=== PATIENT | male | born 1975 | race Caucasian/White ===

== ENCOUNTER 2016-09-07 15:23 | Emergency (ER) | payer OTHER ==
[2016-09-07 15:42] VITALS: BP 134/93
--- NOTE | 2016-09-07 15:59 | EDM.PDOC ---
ED HPI GENERAL MEDICAL PROBLEM - General Chief Complaint: ENT Problem Stated Complaint: TOOTH PAIN Time Seen by Provider: 09/07/16 15:39 Source of Information: Reports: Patient History Limitations: Reports: No Limitations - History of Present Illness INITIAL COMMENTS - FREE TEXT/NARRATIVE: The patient presents with left lower jaw dental pain and edema. This started a couple days ago. He denies fever or chills. He has history of dental abscess. Onset: Gradual Duration: Day(s): Location: Reports: Face (Left lower jaw pain) Quality: Reports: Sharp Severity: Severe Improves with: Reports: None Worsens with: Reports: None Associated Symptoms: Reports: No Other Symptoms Left Lower Tooth/Teeth Pain Score (Numeric/FACES): 10 - Related Data Allergies Allergy/AdvReac Type Severity Reaction Status Date / Time No Known Allergies Allergy Verified 08/11/15 18:11 Home Meds: Home Meds Penicillin V Potassium 500 mg PO Q6HR #40 tab 09/07/16 [Rx] oxyCODONE HCl/Acetaminophen [Percocet 5-325 mg Tablet] 1 - 2 each PO Q6HR PRN # 20 tablet 09/07/16 [Rx] Past Medical History - Past Health History Medical/Surgical History: Denies Medical/Surgical History Neurological History: Reports: Migraines - Past Surgical History GI Surgical History: Reports: Appendectomy Social & Family History - Tobacco Use Smoking Status *Q: Current Every Day Smoker Years of Tobacco use: 20 Packs/Tins Daily: 0.5 - Recreational Drug Use Recreational Drug Use: No ED ROS ENT - Review of Systems Review Of Systems: See Below Constitutional: Reports: No Symptoms HEENT: Reports: Dental Pain Respiratory: Reports: No Symptoms Cardiovascular: Reports: No Symptoms Endocrine: Reports: No Symptoms GI/Abdominal: Reports: No Symptoms : Reports: No Symptoms Musculoskeletal: Reports: No Symptoms ED EXAM, ENT - Physical Exam Exam: See Below Exam Limited By: No Limitations General Appearance: Alert, No Apparent Distress Ears: Normal External Exam Nose: Normal Inspection Mouth/Throat: Other (Left lower jaw pain and edema with pain upon palpation) Neck: Lymphadenopathy (L) Course - Vital Signs Last Recorded V/S: Last Vital Signs Temp 98.1 F 09/07/16 15:37 Pulse 95 09/07/16 15:37 Resp 18 09/07/16 15:37 BP 134/93 H 09/07/16 15:37 Pulse Ox 100 09/07/16 15:37 Departure - Departure Time of Disposition: 16:00 Disposition: Home, Self-Care 01 Condition: Good Clinical Impression: Dental abscess, Pain, dental - Discharge Information Prescriptions: Penicillin V Potassium 500 mg PO Q6HR #40 tab oxyCODONE HCl/Acetaminophen [Percocet 5-325 mg Tablet] 1 - 2 each PO Q6HR PRN # 20 tablet PRN Reason: Pain Referrals: Rose Dempsey PA-C [Primary Care Provider] - Forms: ED Department Discharge Additional Instructions: Take the medication as prescribed. Put a warm compress on your jaw 2 times per day for 3 days. Follow up with a dentist in [facility].
== END 2016-09-07 16:09 | disposition home or self-care (01) ==
LOC: JD.ED 15:23
DX: K04.7 Periapical abscess without sinus (principal); F17.210 Nicotine dependence, cigarettes, uncomplicated; Z90.49 Acquired absence of other specified parts of digestive tract
CPT/HCPCS: 99282; 99283

== ENCOUNTER 2017-05-12 21:20 | Emergency (ER) | payer OTHER ==
[2017-05-12 21:26] VITALS: BP 170/107
[2017-05-12] MEDS ORDERED: Penicillin V Potassium 500 MG Tab PO ONE (21:48)
[2017-05-12] MEDS ORDERED: Naproxen 500 MG Tab PO ONE (21:48)
--- NOTE | 2017-05-12 21:54 | EDM.PDOC ---
ED HPI GENERAL MEDICAL PROBLEM - General Chief Complaint: ENT Problem Stated Complaint: tooth pain Time Seen by Provider: 05/12/17 21:27 Source of Information: Reports: Patient, Family () History Limitations: Reports: No Limitations - History of Present Illness INITIAL COMMENTS - FREE TEXT/NARRATIVE: The patient states that he developed a left upper toothache around noon today. He has been applying a topical anesthetic with some relief. No dental injury or fracture. No prior issues with this particular tooth. No recent fever. No recent oral drainage. The patient acknowledges that he has "bad teeth" and that he has not been to a dentist in about 7 years. The patient smells of alcohol and acknowledges that he was drinking earlier tonight, in order to "kill the pain". The patient's PCP is Rose Dempsey. 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, NSAIDS Left Tooth/Teeth Pain Score (Numeric/FACES): 10 - Related Data Allergies Allergy/AdvReac Type Severity Reaction Status Date / Time No Known Allergies Allergy Verified 08/11/15 18:11 Home Meds: Home Meds Penicillin V Potassium 500 mg PO Q6HR #40 tab 09/07/16 [Rx] oxyCODONE HCl/Acetaminophen [Percocet 5-325 mg Tablet] 1 - 2 each PO Q6HR PRN # 20 tablet 09/07/16 [Rx] Naproxen 500 mg PO Q12H PRN #20 tablet 05/12/17 [Rx] Penicillin V Potassium [IJD: Penicillin V Potassium] 500 mg PO Q6H #40 tab 05/12 [Rx] Past Medical History Musculoskeletal History: Reports: Back Pain, Chronic (DDD) Neurological History: Reports: Headaches, Chronic (patient calls them "migraines ", but they're not) Endocrine/Metabolic History: Reports: Obesity/BMI 30+ - Past Surgical History HEENT Surgical History: Reports: Naso-Sinus Surgery (Rhinoplasty), Oral Surgery ([place] teeth extraction) GI Surgical History: Reports: Appendectomy Social & Family History - Tobacco Use Smoking Status *Q: Current Every Day Smoker Years of Tobacco use: 22 Packs/Tins Daily: 1 - Caffeine Use Caffeine Use: Reports: Soda - Alcohol Use Alcohol Use History: Yes Alcohol Use Frequency: Binges - Recreational Drug Use Recreational Drug Use: No - Living Situation & Occupation Living situation: Reports: , with Spouse Occupation: Unemployed ED ROS ENT - Review of Systems Review Of Systems: ROS reveals no pertinent complaints other than HPI. ED EXAM, ENT - Physical Exam Exam: See Below Exam Limited By: No Limitations General Appearance: Alert, WD/WN, Mild Distress (Crying, initially, although stopped when asked questions) Eye Exam: Bilateral Eye: Normal Inspection Ears: Normal External Exam, Normal Canal, Hearing Grossly Normal, Normal TMs Nose: Normal Inspection, Normal Mucousa, No Blood Mouth/Throat: Normal Inspection, Normal Lips, Normal Oropharynx, Other ( Extensive gingivitis throughout. Teeth #1, 2 absent. Teeth #3, 4 with fillings. Tooth #8 loose. Tooth #16 (the tooth of concern) with no obvious abnormality. Teeth #17, 18 absent. Tooth #19 very loose. Tooth #25 absent. Tooth #26 loose. Tooth #30 absent. Tooth #31 with filling.) Head: Atraumatic, Normocephalic Neck: Normal Inspection, Supple, Non-Tender, Full Range of Motion. No: Lymphadenopathy (L), Lymphadenopathy (R) Course - Vital Signs Last Recorded V/S: Last Vital Signs Temp 36.4 C 05/12/17 21:24 Pulse 111 H 05/12/17 21:24 Resp 20 05/12/17 21:24 BP 170/107 H 05/12/17 21:24 Pulse Ox 93 L 05/12/17 21:24 - Orders/Labs/Meds Orders: Active Orders 24 hr Category Date Time Status Naproxen [Naprosyn] Med 05/12/17 21:48 Once 500 mg PO ONETIME ONE Penicillin V Potassium [Veetids] Med 05/12/17 21:48 Once 500 mg PO ONETIME ONE Medication Orders Naproxen (Naprosyn) 500 mg PO ONETIME ONE Stop: 05/12/17 21:49 Meds: Medications Generic Name Dose Route Start Last Admin Trade Name Freq PRN Reason Stop Dose Admin Naproxen 500 mg 05/12/17 21:48 Naprosyn PO 05/12/17 21:49 ONETIME ONE - Re-Assessments/Exams Free Text/Narrative Re-Assessment/Exam: 05/12/17 21:49 The patient has very poor dentition. No obvious dental infection, but he has extensive gingivitis and numerous loose teeth. Tooth #16 as the tooth that is bothering him at this time. As above, I don't see an infection or fractured tooth, but I will prescribe penicillin and naproxen. I emphasized to strong as possible that he see a dentist if he does not want to be edentulous soon. Departure - Departure Time of Disposition: 21:50 Disposition: Home, Self-Care 01 Condition: Fair Clinical Impression: Dentalgia - Discharge Information Prescriptions: Naproxen 500 mg PO Q12H PRN #20 tablet PRN Reason: Pain Penicillin V Potassium [IJD: Penicillin V Potassium] 500 mg PO Q6H #40 tab Referrals: Rose Dempsey PA-C [Primary Care Provider] - Additional Instructions: You were seen in the emergency room for an upper left toothache. On examination, no obvious infection was found, however, you have extensive gingivitis and a number of your teeth are loose. You have been started on the antibiotic penicillin and the pain reliever naproxen. A prescription for these has been sent to the [facility], located in the [facility] grocery store. Take one tablet of penicillin every 6 hours, starting early tomorrow morning, 05/13/2017, as prescribed. Take one tablet of naproxen every 12 hours, with food, starting tomorrow morning , 05/13/2017, as prescribed. It is imperative that you follow-up with a dentist this coming week. The ER cannot treat dental issues. If any other problems, please do not hesitate to return to the ER. - My Orders Last 24 Hours: My Active Orders 05/12/17 21:48 Naproxen [Naprosyn] 500 mg PO ONETIME ONE Penicillin V Potassium [Veetids] 500 mg PO ONETIME ONE - Assessment/Plan Last 24 Hours: My Active Orders 05/12/17 21:48 Naproxen [Naprosyn] 500 mg PO ONETIME ONE Penicillin V Potassium [Veetids] 500 mg PO ONETIME ONE
== END 2017-05-12 22:00 | disposition home or self-care (01) ==
LOC: JD.ED 21:20
DX: K08.89 Other specified disorders of teeth and supporting structures (principal); F17.210 Nicotine dependence, cigarettes, uncomplicated
CPT/HCPCS: 99283; A9270

== ENCOUNTER 2017-09-23 19:44 | Emergency (ER) | payer OTHER ==
[2017-09-23 19:55] VITALS: BP 152/98
[2017-09-23] MEDS ORDERED: Metoclopramide 10 MG/2 ML SDV IVPUSH ONE (19:56)
[2017-09-23] MEDS ORDERED: HYDROmorphone 1 MG/ML Syringe IVPUSH ONE (19:57)
[2017-09-23] MEDS ORDERED: Ketorolac 30 MG/ML SDV IVPUSH SCH (20:00)
[2017-09-23] MEDS ORDERED: Dextrose 5%-0.9% NaCl 1,000 ML IV SCH (20:00)
--- NOTE | 2017-09-23 20:01 | EDM.PDOC ---
ED HPI GENERAL MEDICAL PROBLEM - General Chief Complaint: Headache Stated Complaint: MIGRAINE Time Seen by Provider: 09/23/17 19:56 Source of Information: Reports: Patient, Family (spouse) History Limitations: Reports: No Limitations - History of Present Illness INITIAL COMMENTS - FREE TEXT/NARRATIVE: 42-year-old male presents to the ED with a severe right hemicranial headache that started about an hour ago. Associate significant photophobia and nausea. Patient has a history of recurrent migraine headaches since being in the [place] war. Patient has not yet vomited. states she struggled with walking because it's difficult to keep his eyes open due to the severe photophobia. Sounds also seen located normal. States his headache is a little bit worse than what is experiencing the past and he came on quite quickly. No recent falls or head injuries. Onset: Today Onset Date: 09/23/17 Onset Time: 18:40 Duration: Minutes: Location: Reports: Head Quality: Reports: Ache (Severe headache mostly right hemicranial), Throbbing, Other Severity: Severe (Pounding.) Improves with: Reports: Other Worsens with: Reports: Other (Examination are grown exposure to light.) Context: Reports: Other (Spontaneous occurrence. Has not yet eaten any supper.) . Denies: Activity, Exercise, Lifting, Sick Contact, Trauma Associated Symptoms: Reports: Headaches, Nausea/Vomiting. 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: Other (see below) (None.) Headache Pain Score (Numeric/FACES): 10 - Related Data Allergies Allergy/AdvReac Type Severity Reaction Status Date / Time No Known Allergies Allergy Verified 09/23/17 19:55 Past Medical History Musculoskeletal History: Reports: Back Pain, Chronic (DDD) Neurological History: Reports: Headaches, Chronic (patient calls them "migraines ", but they're not) Endocrine/Metabolic History: Reports: Obesity/BMI 30+ - Past Surgical History HEENT Surgical History: Reports: Naso-Sinus Surgery (Rhinoplasty), Oral Surgery ([place] teeth extraction) GI Surgical History: Reports: Appendectomy Social & Family History - Caffeine Use Caffeine Use: Reports: Soda - Living Situation & Occupation Living situation: Reports: , with Spouse Occupation: Unemployed ED ROS GENERAL - Review of Systems Review Of Systems: See Below Constitutional: Denies: Fever, Chills, Malaise, Weakness, Fatigue, Weight Loss HEENT: Reports: Other Respiratory: Reports: No Symptoms (Severe photosensitivity) Cardiovascular: Reports: No Symptoms Endocrine: Reports: No Symptoms GI/Abdominal: Reports: No Symptoms : Reports: No Symptoms Musculoskeletal: Reports: Back Pain Skin: Reports: No Symptoms (Chronic low back pain problems) Neurological: Reports: Headache Psychiatric: Reports: No Symptoms (Recurrent migraine headache) - Physical Exam Exam: See Below Exam Limited By: No Limitations General Appearance: Alert, WD/WN, Moderate Distress (Examination Dr. Sy. He appears to be very uncontrolled headache.) Eye Exam: Bilateral Eye: Normal Inspection, PERRL Throat/Mouth: Normal Inspection, Normal Lips, Normal Teeth, Normal Gums, Normal Oropharynx Head Exam: Atraumatic, Normocephalic Neck: Normal Inspection, Supple, Non-Tender, Full Range of Motion. No: Lymphadenopathy (L), Lymphadenopathy (R) Respiratory/Chest: No Respiratory Distress, Lungs Clear, Normal Breath Sounds Cardiovascular: Normal Peripheral Pulses, Regular Rate, Rhythm, No Edema, No Gallop, No Murmur, Other (Note is hypertensive initially at 1 5298.) Extremities: Normal Inspection, Normal Range of Motion, Non-Tender, No Pedal Edema Skin Exam: Warm, Intact, Normal Color, No Rash Course - Vital Signs Last Recorded V/S: Last Vital Signs Temp 35.9 C 09/23/17 19:52 Pulse 99 09/23/17 19:52 Resp 18 09/23/17 19:52 BP 152/98 H 09/23/17 19:52 Pulse Ox 95 09/23/17 19:52 - Orders/Labs/Meds Orders: Active Orders 24 hr Category Date Time Status Dextrose 5%-0.9% NaCl [Dextrose 5%-Normal Saline] 1,000 Med 09/23/17 20:00 Active ml IV ASDIRECTED Ketorolac [Toradol] Med 09/23/17 20:00 Active 30 mg IVPUSH ONETIME Medication Orders Dextrose/Sodium Chloride (Dextrose 5%-Normal Saline) 1,000 mls @ 500 mls/hr IV ASDIRECTED KOBI Last Admin: 09/23/17 20:34 Dose: 500 mls/hr Ketorolac Tromethamine (Toradol) 30 mg IVPUSH ONETIME KOBI Last Admin: 09/23/17 20:40 Dose: 30 mg Meds: Medications Generic Name Dose Route Start Last Admin Trade Name Renata PRN Reason Stop Dose Admin Dextrose/Sodium Chloride 1,000 mls @ 500 mls/hr 09/23/17 20:00 09/23/17 20:34 Dextrose 5%-Normal Saline IV 500 mls/hr ASDIRECTED KOBI Administration Ketorolac Tromethamine 30 mg 09/23/17 20:00 09/23/17 20:40 Toradol IVPUSH 30 mg ONETIME KOBI Administration Discontinued Medications Generic Name Dose Route Start Last Admin Trade Name Freq PRN Reason Stop Dose Admin Hydromorphone HCl 1 mg 09/23/17 19:57 09/23/17 20:26 Dilaudid IVPUSH 09/23/17 19:58 1 mg ONETIME ONE Administration Metoclopramide HCl 10 mg 09/23/17 19:56 09/23/17 20:30 Reglan IVPUSH 09/23/17 19:57 10 mg ONETIME ONE Administration - Radiology Interpretation Free Text/Narrative:: 42-year-old male presents to the ED with acute onset of severe headache. He has associated nausea and photophobia and sound sound louder than normal. He states he is prone to migraine headaches gets them quite often like 4-5 times per month. This one came on about an hour ago. Is extremely photophobic was examined in a darkened room. Neuro exam is otherwise intact. Plan IV D5 normal saline at 500 mils per hour. Given Reglan 10 mg IV with Dilaudid 1 mg IV and Toradol 30 mg IV for pain relief. - Re-Assessments/Exams Free Text/Narrative Re-Assessment/Exam: 09/23/17 21:09 patient is feeling much improved. States his headache is about 75% gone already. He feels good enough to go home to bed. He will be discharged home in the care of his . Departure - Departure Time of Disposition: 21:09 Disposition: Home, Self-Care 01 Condition: Fair Clinical Impression: Migraine - Discharge Information *PRESCRIPTION DRUG MONITORING PROGRAM REVIEWED*: No *COPY OF PRESCRIPTION DRUG MONITORING REPORT IN PATIENT RUDDY: No Instructions: Migraine Headache Referrals: Rose Dempsey PA-C [Primary Care Provider] - Forms: ED Department Discharge Additional Instructions: Evaluation in the emergency him today in regards to development of a severe migraine headache also a right hemicranial. Severe photosensitivity and hypersensitive to sounds. History of migraine headaches. Associated nausea without vomiting. You're treated in the ED with intravenous fluids and given medications Reglan 10 mg IV. Dilaudid 1 mg IV. And Toradol 30 mg IV. At the time of discharge her headache was 75-80% better. Just home to sleep to break the headache cycle. Of course return to the ED or follow-up with personal care physician if any further problems occur. - My Orders Last 24 Hours: My Active Orders 09/23/17 20:00 Dextrose 5%-0.9% NaCl [Dextrose 5%-Normal Saline] 1,000 ml IV ASDIRECTED Ketorolac [Toradol] 30 mg IVPUSH ONETIME - Assessment/Plan Last 24 Hours: My Active Orders 09/23/17 20:00 Dextrose 5%-0.9% NaCl [Dextrose 5%-Normal Saline] 1,000 ml IV ASDIRECTED Ketorolac [Toradol] 30 mg IVPUSH ONETIME
== END 2017-09-23 21:25 | disposition home or self-care (01) ==
LOC: JD.ED 19:44
DX: G43.909 Migraine, unspecified, not intractable, without status migrainosus (principal)
CPT/HCPCS: 96361; 96374; 96375; 99283; J1170; J1885; J2765; J7042; 99284

== ENCOUNTER 2021-05-23 02:03 | Emergency (ER) | payer OTHER ==
[2021-05-23 02:14] VITALS: BP 195/126; PULSE 107
[2021-05-23] MEDS ORDERED: Sodium Chloride 0.9% 10 ML Syringe FLUSH PRN (02:17)
[2021-05-23] MEDS ORDERED: Orphenadrine 100 MG Tab.ER PO STA (04:05)
[2021-05-23] MEDS ORDERED: Ibuprofen 600 MG Tab PO ONE (04:05)
== END 2021-05-23 04:26 | disposition home or self-care (01) ==
LOC: JD.ED 02:03
DX: R07.9 Chest pain, unspecified (principal); E66.9 Obesity, unspecified; Z68.41 Body mass index [BMI] 40.0-44.9, adult; Z72.0 Tobacco use
CPT/HCPCS: 36415; 71046; 80053; 83735; 83880; 84484; 85025; 85379; 85610; 93005; 94762; 99285; A9270; J3490; 93010; 99284

== ENCOUNTER 2021-06-05 17:37 | Emergency (ER) | payer OTHER ==
[2021-06-05 19:11] VITALS: BP 162/115; PULSE 94
[2021-06-05] MEDS ORDERED: LORazepam 2 MG/ML SDV IVPUSH ONE (19:50)
== END 2021-06-05 21:20 | disposition home or self-care (01) ==
LOC: JD.ED 17:37
DX: R55 Syncope and collapse (principal); E66.9 Obesity, unspecified; Z68.41 Body mass index [BMI] 40.0-44.9, adult; Z72.0 Tobacco use
CPT/HCPCS: 36415; 70450; 71045; 80053; 80307; 84484; 85025; 85610; 93005; 93225; 93226; 96374; 99284; J2060

== ENCOUNTER 2024-03-11 20:40 | Inpatient (IN) | payer OTHER ==
[2024-03-11] MEDS ORDERED: Sodium Chloride 0.9% 10 ML Syringe FLUSH PRN (21:42)
[2024-03-11] MEDS: Albuterol/Ipratropium 3.0-0.5 MG/3 ML Neb Soln NEB ONE (21:49)
[2024-03-11 22:03] LABS: CORONAVIRUS COVID-19 NAA NEGATIVE (NEGATIVE); INFLUENZA A NAA NEGATIVE (NEGATIVE); RESPIRATORY SYNCYTIAL VIR NAA POSITIVE (NEGATIVE)
[2024-03-11 22:15] LABS: BASOPHILS ABSOLUTE AUTO 0.1 K/mm3 (0.0-0.2); EOSINOPHILS ABSOLUTE AUTO 0.3 K/mm3 (0.0-0.4); EOSINOPHILS PERCENT AUTO 2.7 % (0.0-6.0); HEMATOCRIT 45.3 % (42.0-52.0); HEMOGLOBIN 14.9 gm/dl (14.0-18.0); IMMATURE GRAN ABSOLUTE AUTO 0.04 K/mm3 (0.00-0.05); IMMATURE GRAN PERCENT AUTO 0.4 % (0.0-0.4); LYMPHOCYTES ABSOLUTE AUTO 1.7 K/mm3 (1.0-4.8); LYMPHOCYTES PERCENT AUTO 18.5 % (24.0-44.0); MEAN CORPUSCULAR HEMOGLOBIN 29.3 pg (28.0-32.0); MEAN CORPUSCULAR HGB CONC 32.9 g/dl (32.0-36.0); MEAN PLATELET VOLUME 8.7 fl (9.4-12.4); MONOCYTES ABSOLUTE AUTO 1.1 K/mm3 (0.0-0.8); MONOCYTES PERCENT AUTO 11.9 % (0.0-8.0); NEUTROPHILS PERCENT AUTO 65.5 % (41.0-71.0); PLATELET COUNT,PLT 274 K/mm3 (150-400); RED BLOOD CELL COUNT 5.09 M/mm3 (4.52-5.90); WHITE BLOOD CELL COUNT,WBC 9.19 K/mm3 (3.9-11.3)
[2024-03-11 22:39] LABS: LACTIC ACID 0.8 mmol/L (0.4-2.0)
[2024-03-11 22:40] LABS: A/G RATIO 0.9 (1-2); ALBUMIN 3.3 g/dl (3.4-5.0); BILIRUBIN TOTAL 0.2 mg/dL (0.2-1.0); BUN/CREATININE RATIO 13.3 (14-18); CALCIUM 8.7 mg/dL (8.5-10.1); CREATININE 0.9 mg/dL (0.7-1.3); EST CRCL DRUG DOSING (CG) 111.37 mL/min; PROTEIN TOTAL,TP 7.1 g/dl (6.4-8.2)
[2024-03-11] MEDS: methylPREDNISolone Sodium Succinate 125 MG/2 ML SDV IVPUSH ONE (22:50)
[2024-03-12] MEDS: Sodium Chloride 0.9% 1,000 ML IV ONE (00:36)
[2024-03-12 00:37] LABS: APPEARANCE,URINE CLEAR (Clear); BILIRUBIN,URINE NEGATIVE (Negative); COLOR,URINE YELLOW (Yellow); GLUCOSE,URINE NEGATIVE (Negative); KETONES,URINE NEGATIVE (Negative); LEUKOCYTE ESTERASE,URINE NEGATIVE (Negative); NITRITE,URINE NEGATIVE (Negative); OCCULT BLOOD,URINE TRACE-INTACT (Negative); PROTEIN,URINE NEGATIVE (Negative); UROBILINOGEN,URINE 0.2 (0.2-1.0)
[2024-03-12 00:43] LABS: BACTERIA,URINE RARE /hpf (FEW); EPITHELIAL CELLS,URINE NOT SEEN /hpf (0-5); MUCUS,URINE NOT SEEN /hpf (FEW); RBC,URINE 0-5 /hpf (0-5); WBC,URINE 0-5 /hpf (0-5)
[2024-03-12] MEDS: hydrALAZINE 20 MG/ML SDV IVPUSH ONE (03:46)
[2024-03-12] MEDS: Nicotine 21 MG/24 Hr Patch TRDERM ONE (10:00)
[2024-03-12] MEDS ORDERED: Acetaminophen 325 MG Tab PO PRN (13:40)
[2024-03-12] MEDS ORDERED: Ondansetron 4 MG/2 ML SDV IV PRN (13:40)
[2024-03-12] MEDS: Albuterol/Ipratropium 3.0-0.5 MG/3 ML Neb Soln NEB SCH ×2 (14:02→14:53)
[2024-03-12] MEDS ORDERED: Nicotine Polacrilex 2 MG Gum CHEW PRN (18:01)
[2024-03-13 04:41] LABS: HEMATOCRIT 46.8 % (42.0-52.0); MEAN CORPUSCULAR HEMOGLOBIN 29.2 pg (28.0-32.0); MEAN CORPUSCULAR HGB CONC 32.1 g/dl (32.0-36.0); MEAN CORPUSCULAR VOLUME 91.2 fl (83.0-99.0); MEAN PLATELET VOLUME 9.1 fl (9.4-12.4); PLATELET COUNT,PLT 300 K/mm3 (150-400); RED BLOOD CELL COUNT 5.13 M/mm3 (4.52-5.90); WHITE BLOOD CELL COUNT,WBC 11.01 K/mm3 (3.9-11.3)
[2024-03-13 05:18] LABS: A/G RATIO 0.9 (1-2); ALBUMIN 3.3 g/dl (3.4-5.0); ANION GAP 8.8 (5-15); BILIRUBIN TOTAL 0.3 mg/dL (0.2-1.0); C-REACTIVE PROTEIN 0.69 mg/dL (<0.30); CALCIUM 8.4 mg/dL (8.5-10.1); EST CRCL DRUG DOSING (CG) 100.23 mL/min; POTASSIUM,K 3.8 mEq/L (3.5-5.1); PROTEIN TOTAL,TP 7.2 g/dl (6.4-8.2)
[2024-03-13] MEDS: predniSONE 20 MG Tab PO SCH (06:50)
[2024-03-13] MEDS: Enoxaparin 40 MG/0.4 ML Syringe SUBCUT SCH (09:54)
[2024-03-13] MEDS: guaiFENesin 600 MG Tab.ER PO SCH (09:54)
[2024-03-13] MEDS: Nicotine 21 MG/24 Hr Patch TRDERM SCH (09:55)
[2024-03-13] MEDS ORDERED: Acetaminophen/Butalbital/Caffeine 325-50-40 MG Tab PO PRN (13:24)
[2024-03-13] MEDS: Albuterol/Ipratropium 3.0-0.5 MG/3 ML Neb Soln NEB SCH (13:51)
[2024-03-13] MEDS ORDERED: hydrALAZINE 20 MG/ML SDV IVPUSH PRN (15:30)
[2024-03-13] MEDS: amLODIPine 5 MG Tab PO SCH (15:54)
[2024-03-13] MEDS: ACETAMINOPHEN PO PRN (17:15)
[2024-03-13] MEDS: ASPIRIN PO PRN (17:15)
[2024-03-13] MEDS: CAFFEINE PO PRN (17:15)
[2024-03-14 06:45] LABS: HEMATOCRIT 48.4 % (42.0-52.0); HEMOGLOBIN 15.7 gm/dl (14.0-18.0); MEAN CORPUSCULAR HEMOGLOBIN 29.2 pg (28.0-32.0); MEAN CORPUSCULAR HGB CONC 32.4 g/dl (32.0-36.0); MEAN CORPUSCULAR VOLUME 90.1 fl (83.0-99.0); MEAN PLATELET VOLUME 8.6 fl (9.4-12.4); PLATELET COUNT,PLT 301 K/mm3 (150-400); RED BLOOD CELL COUNT 5.37 M/mm3 (4.52-5.90); WHITE BLOOD CELL COUNT,WBC 12.46 K/mm3 (3.9-11.3)
[2024-03-14 07:11] LABS: A/G RATIO 0.9 (1-2); ALBUMIN 3.5 g/dl (3.4-5.0); ANION GAP 10.8 (5-15); BILIRUBIN TOTAL 0.4 mg/dL (0.2-1.0); BUN/CREATININE RATIO 12.2 (14-18); C-REACTIVE PROTEIN 0.61 mg/dL (<0.30); CALCIUM 8.3 mg/dL (8.5-10.1); CREATININE 0.9 mg/dL (0.7-1.3); EST CRCL DRUG DOSING (CG) 111.37 mL/min; POTASSIUM,K 3.8 mEq/L (3.5-5.1); PROTEIN TOTAL,TP 7.5 g/dl (6.4-8.2)
[2024-03-14] MEDS ORDERED: Patient's Own Medication 1 Each PO PRN (07:51)
[2024-03-14] MEDS ORDERED: CAFFEINE PO PRN (07:53)
[2024-03-14] MEDS ORDERED: ACETAMINOPHEN PO PRN (07:53)
[2024-03-14] MEDS ORDERED: ASPIRIN PO PRN (07:53)
[2024-03-14] MEDS: Azithromycin 500 MG in Sodium Chloride 0.9% 250 ML IV SCH (13:35)
[2024-03-15 04:40] LABS: HEMATOCRIT 48.8 % (42.0-52.0); HEMOGLOBIN 15.5 gm/dl (14.0-18.0); MEAN CORPUSCULAR HEMOGLOBIN 28.9 pg (28.0-32.0); MEAN CORPUSCULAR HGB CONC 31.8 g/dl (32.0-36.0); MEAN PLATELET VOLUME 8.7 fl (9.4-12.4); PLATELET COUNT,PLT 271 K/mm3 (150-400); RED BLOOD CELL COUNT 5.36 M/mm3 (4.52-5.90)
[2024-03-15 04:59] LABS: A/G RATIO 0.9 (1-2); ALBUMIN 3.4 g/dl (3.4-5.0); ANION GAP 9.7 (5-15); BILIRUBIN TOTAL 0.4 mg/dL (0.2-1.0); BUN/CREATININE RATIO 12.2 (14-18); C-REACTIVE PROTEIN 0.99 mg/dL (<0.30); CALCIUM 8.4 mg/dL (8.5-10.1); CREATININE 0.9 mg/dL (0.7-1.3); EST CRCL DRUG DOSING (CG) 111.37 mL/min; POTASSIUM,K 3.7 mEq/L (3.5-5.1); PROTEIN TOTAL,TP 7.3 g/dl (6.4-8.2)
[2024-03-15] MEDS: Azithromycin 500 MG in Sodium Chloride 0.9% 250 ML IV SCH (11:41)
[2024-03-15 13:38] VITALS: BP 150/92; PULSE 113
== END 2024-03-15 13:25 | disposition home or self-care (01) | DRG 193 ==
LOC: JD.ED 20:40 → JD.MS 03-12 09:47
PROVIDERS: ADMIT Internal Medicine; ATTEND Internal Medicine
DX: J12.1 Respiratory syncytial virus pneumonia (principal); J96.01 Acute respiratory failure with hypoxia; Z68.41 Body mass index [BMI] 40.0-44.9, adult; M54.9 Dorsalgia, unspecified; I10 Essential (primary) hypertension; G89.29 Other chronic pain; F41.9 Anxiety disorder, unspecified; E66.9 Obesity, unspecified; Z98.890 Other specified postprocedural states; Z90.49 Acquired absence of other specified parts of digestive tract; Z72.0 Tobacco use
CPT/HCPCS: 0241U; 36415; 71045; 71045-26; 80053; 81001; 83605; 83880; 85025; 85027; 85379; 86140; 87040; 94640; 94667; 94668; 94761; 96374; 96375; 99285; 99285-25; A9270-GY; J0360; J0456; J1650; J2919; J7030; J7512; J7620-GY